=== PATIENT | male | born 1970 | race Caucasian/White ===

== ENCOUNTER 2024-04-16 19:50 | Emergency (ER) | payer MEDICAID ==
[~2024-04-16] VITALS: Ht 170.2 cm; Wt 90.7 kg
[2024-04-16 20:01] VITALS: BP_SYST 152; PULSE 86; RESP 20; TEMP 98; O2SAT 96
[2024-04-16] MEDS ORDERED: AUG875 PO (20:13)
[2024-04-16 20:32] VITALS: BP_SYST 152; PULSE 86; RESP 20; TEMP 98; O2SAT 96
== END 2024-04-16 20:17 | disposition home or self-care (01) ==
LOC: SED 19:50
DX: J32.8 Other chronic sinusitis (principal)
CPT/HCPCS: 99283